=== PATIENT | female | born 2000 | race Caucasian/White ===

== ENCOUNTER 2023-01-27 13:13 | Emergency (ER) | payer BC ==
[~2023-01-27] VITALS: Ht 162.6 cm; Wt 70.5 kg
[~2023-01-27 13:13] MED LIST: CEFTIN500 MG PO; ZOFRAN ODT4 MG PO
[2023-01-27 13:14] VITALS: TEMP 98.6
[2023-01-27] MEDS ORDERED: ATIVAN 0.50.5 MG/TAB PO (13:30)
[2023-01-27] MEDS ORDERED: AMOXICILLIN 8751 TAB PO (13:31)
[2023-01-27] MEDS ORDERED: INSULIN HUMA100 U/ML SQ (13:31)
[2023-01-27] MEDS ORDERED: LAMICTAL 100MG100 MG PO (13:32)
[2023-01-27] MEDS ORDERED: TESSALON P100 MG/CAP PO (13:33)
[2023-01-27 13:36] LABS: BASO # 0.1 K/mm3 (0.0-0.2); BASO % 0.8 % (0.0-2.0); EOS # 0.2 K/mm3 (0.0-0.7); EOS % 3.3 % (0.0-4.0); GRAN # 3.2 K/mm3 (1.4-6.5); GRAN % 48.9 % (42.2-75.2); HEMATOCRIT 43.4 % (35.0-45.0); HEMOGLOBIN 13.9 g/dl (12.0-15.0); LYMPH # 2.6 K/mm3 (1.2-3.4); LYMPH % 39.7 % (20.0-51.0); MEAN CELL VOLUME 90 fl (80.0-95.0); MEAN CORPUSCULAR HEMOGLOBIN 29 pg (26-32); MEAN CORPUSCULAR HGB CONC 32 g/dl (33.0-37.0); MEAN PLATELET VOLUME 9.4 fl (7.4-10.4); MONO # 0.5 K/mm3 (0.1-0.6); PLATELET COUNT 305 K/mm3 (130-400); RED BLOOD COUNT 4.84 M/mm3 (4.10-5.30); REDCELL DISTRIBUTION WIDTH-CV 13.7 % (11.5-14.5)
[2023-01-27 13:49] LABS: ALBUMIN 3.6 gm/dL (3.5-5.0); BILIRUBIN,TOTAL 0.5 mg/dL (0.2-1.2); CALCIUM 10.1 mg/dL (8.4-10.2); CREATININE, serum 0.83 mg/dL (0.57-1.11); POTASSIUM 4.8 mmol/L (3.5-4.5); TOTAL PROTEIN 7.4 gm/dL (6.2-8.1)
[2023-01-27 15:38] VITALS: BP 143/98; PULSE 90
== END 2023-01-27 15:35 | disposition home or self-care (01) ==
LOC: COL.ER 13:13
PROVIDERS: Emergency Medicine
DX: G40.909 Epilepsy, unspecified, not intractable, without status epilepticus (principal); Z28.310 Unvaccinated for COVID-19; Z91.148 Patient's other noncompliance with medication regimen for other reason
CPT/HCPCS: J7030